=== PATIENT | male | born 1990 | race Two or more races ===

== ENCOUNTER 2020-03-28 19:21 | Emergency (ER) | payer SELFPAY ==
[~2020-03-28] VITALS: Ht 182.9 cm; Wt 97.5 kg
[2020-03-28] MEDS ORDERED: MORPHINE SULF INJ 2 MG/ML SYRINGE 1ML IV ONE (20:15)
[2020-03-28] MEDS ORDERED: LIDOCAINE 2%HCL (LOCAL ANESTH.) INJ 10ml MDV IJ ONE ×2 (20:30→21:00)
[2020-03-28] MEDS ORDERED: NEOMYCIN-BACITRACIN-POLYM UNITDOSE PKG TOP OINT TOP ONE (20:30)
[2020-03-28] MEDS ORDERED: LIDOCAINE W/ EPINEPHRINE 2% INJ 20ML VIAL ONE (20:51)
[2020-03-28] MEDS ORDERED: LIDOCAINE 2%HCL (LOCAL ANESTH.) INJ 20ML MDV ONE (20:51)
[2020-03-28] MEDS ORDERED: BACITRACIN TOP OINT 1 UD PKG TOP ONE (21:00)
[2020-03-28] MEDS ORDERED: TETANUS-DIPTH-ACEL PERTUSSIS 0.5ML SYR Tdap IM ONE (21:30)
[2020-03-28] MEDS ORDERED: NEOMYCIN-BACITRACIN-POLYM 15GM TOP OINT TOP SCH (22:00)
[2020-03-29] MEDS ORDERED: cefTRIAXone 1GM/50ML D5W 50 ML IV ONE (01:30)
[2020-03-29 02:42] VITALS: BP 135/78
== END 2020-03-29 02:51 | disposition home or self-care (01) ==
LOC: ER 19:21 → EDBD 19:21 → ER 03-29 02:51
DX: S61.422A Laceration with foreign body of left hand, initial encounter (principal); F10.920 Alcohol use, unspecified with intoxication, uncomplicated; V49.9XXA Car occupant (driver) (passenger) injured in unspecified traffic accident, initial encounter; Y93.89 Activity, other specified; Y92.89 Other specified places as the place of occurrence of the external cause; Y99.8 Other external cause status
CPT/HCPCS: 12046; 29125; 70450; 71250; 72125; 73120; 73130; 74176; 90471; 90715; 96365; 96375; 99284; J0696; J2001; J2270; 12006